=== PATIENT | male | born 1975 | race American Indian/Alaskan Native ===

== ENCOUNTER 2021-08-09 18:27 | Emergency (ER) | payer SELFPAY ==
[2021-08-09 20:09] VITALS: BP 138/92
--- NOTE | 2021-08-09 20:49 | Emergency Department Report ---
HPI - General Chief Complaint: Skin Rash Time Seen by Provider: 08/09/21 20:45 ED Past Medical Hx - Past Medical History Previous Medical History?: No - Surgical History Past Surgical History?: No - Family History Family history: no significant - Social History Smoking Status: Never Smoker Substance Use Type: Alcohol - Medications Home Medications: Home Medications Medication Instructions Recorded Confirmed Last Taken Type Ibuprofen [Motrin] 800 mg PO Q8HR PRN #30 tablet 12/10/18 Unknown Rx Silver Sulfadiazine [Ssd] 400 gm TP BID #1 each 12/10/18 Unknown Rx HYDROcodone/APAP 5-325 [[place] 2 each PO Q6HR PRN 3 Days #24 08/09/21 Unknown Rx 5/325] tablet Valacyclovir HCl [Valtrex] 1,000 mg PO TID 7 Days #21 tab 08/09/21 Unknown Rx ED Review of Systems ROS: Stated complaint: SPIDER BITE Other details as noted in HPI Other: All systems reviewed and negative Physical Exam - Physical Exam Vital Signs: Vital Signs 08/09/21 20:07 Temperature 98.5 F Pulse Rate 67 Respiratory 20 Rate Blood Pressure 138/92 O2 Sat by Pulse 97 Oximetry Physical Exam: Physical Exam: Constitutional: AAOX3. No acute distress. No diaphoresis. HENT: Normocephalic. Pupils equal and reactive. No throat edema or erythema. Neck: No neck rigidity or tenderness. Cardiovascular: Heart sounds: No murmur. Normal rate and regular rhythm. Pulses: Intact distal pulses. Lungs: No wheezing or rales. Chest wall: No tenderness. Abdominal: No distension. No mass/pulsatile mass. No abdominal tenderness, guarding nor rebound. Musculoskeletal: Normal range of motion. No edema, No calf TTP. Skin: Warm and dry. There is a dermatomal left anterior abdomen rash with vesicles and dried erythematous based ulcers consistent with shingles. Neurological: Alert and oriented to person, place, and time. Psychiatric: Mood and affect normal. Normal cognition and memory. Normal judgement. ED Course Vital Signs 08/09/21 20:07 Temperature 98.5 F Pulse Rate 67 Respiratory 20 Rate Blood Pressure 138/92 O2 Sat by Pulse 97 Oximetry Critical care attestation.: If time is entered above; I have spent that time in minutes in the direct care of this critically ill patient, excluding procedure time. ED Disposition Clinical Impression: Shingles Disposition: 01 HOME / SELF CARE / HOMELESS Is pt being admited?: No Does the pt Need Aspirin: No Condition: Stable Instructions: Neuropathic Pain, Shingles, [id number] Prescriptions: HYDROcodone/APAP 5-325 [[place] 5/325] 2 each PO Q6HR PRN 3 Days #24 tablet PRN Reason: Pain Valacyclovir HCl [Valtrex] 1,000 mg PO TID 7 Days #21 tab Time of Disposition: 20:50 Print Language: HUNGARIAN
[2021-08-09] MEDS ORDERED: diphenhydrAMINE 25 MG/10 ML ORAL LIQUID PO ONE (20:52)
== END 2021-08-09 21:37 | disposition home or self-care (01) ==
LOC: ED 18:27
DX: B02.9 Zoster without complications (principal)
CPT/HCPCS: 99282